=== PATIENT | female | born 1955 | race African-American/Black ===

== ENCOUNTER 2025-05-28 09:43 | Emergency (ER) | payer MEDICARE, OTHER ==
[~2025-05-28] VITALS: Ht 167.6 cm; Wt 81.8 kg
[~2025-05-28 09:43] MED LIST: ATEN-72 PO
[2025-05-28] MEDS ORDERED: METF-1211 PO (10:07)
[2025-05-28 10:39] LABS: PLATELET COUNT (AUTO) 257 K/uL (150-450); RED BLOOD CELL COUNT(AUTO) 4.54 MIL/uL (4.00-5.20); RED CELL DISTRIBUTION WIDTH 13.4 % (11.5-14.5); WHITE BLOOD COUNT (AUTO) 6.3 K/uL (4.5-11.0)
[2025-05-28 10:42] LABS: CALCIUM, TOTAL 9.0 mg/dL (8.8-10.5); CREATININE 1.23 mg/dL (0.60-1.30); GLOMERULAR FILTR. RATE CALC 53.0 mL/min (>60); GLUCOSE,RANDOM 104.0 mg/dL (70-110); SODIUM SERUM 140.0 mmol/L (136-145); UREA NITROGEN, BLOOD 17.0 mg/dL (7-18)
[2025-05-28 10:47] LABS: ASPARTATE AMINOTRANSFERASE 12.0 U/L (15-37); TOTAL PROTEIN, SERUM 7.7 g/dL (6.4-8.2)
[2025-05-28 10:52] LABS: TROPONIN I-HIGH SENSITIVITY 8 ng/L (<51)
[2025-05-28 11:02] LABS: APPEARANCE,URINE CLEAR (CLEAR); GLUCOSE, URINE (UA) NEGATIVE (NEGATIVE); LEUKOCYTE ESTERASE ,URINE NEGATIVE (NEGATIVE); NITRATE,URINE NEGATIVE (NEGATIVE); OCCULT BLOOD,URINE NEGATIVE (NEGATIVE); SPECIFIC GRAVITIY, URINE 1.020 (1.003-1.030)
[2025-05-28 11:20] LABS: GLUCOMETER DEV NAME(LOC) ER.7; GLUCOSE,POINT OF CARE 93 MG/DL (70-110)
[2025-05-28] MEDS: KETOROLAC TROMETHAMINE 30 MG/ML VIAL IM ONE (12:33)
[2025-05-28] MEDS: LIDOCAINE 5% TRANSDERMAL PATCH TD ONE (15:07)
[2025-05-28 15:09] VITALS: BP 187/89; PULSE 64; RESP 18; TEMP 97.9; O2SAT 98
[2025-05-28] MEDS ORDERED: CYCL-448 PO (15:14)
[2025-05-28] MEDS ORDERED: IBUP-1492 PO (15:14)
== END 2025-05-28 15:28 | disposition home or self-care (01) ==
LOC: EMS 09:54
DX: M54.50 Low back pain, unspecified (principal); M54.30 Sciatica, unspecified side; E11.9 Type 2 diabetes mellitus without complications; I10 Essential (primary) hypertension; Z79.899 Other long term (current) drug therapy; Z98.890 Other specified postprocedural states; X50.0XXA Overexertion from strenuous movement or load, initial encounter
CPT/HCPCS: 99285; 72131; 80053; 81003; 82962; 84484; 85025; 36415; 74176; 93005; 96372; J1885